=== PATIENT | male | born 1960 | race Hispanic/Latino ===

== ENCOUNTER 2019-02-28 13:27 | Outpatient (CLI) | payer OTHER ==
--- NOTE | 2019-03-01 08:32 | MRI ---
MR of the right shoulder without contrast INDICATION: Right shoulder pain. History of right shoulder; right shoulder injury while pulling 881 month ago TECHNIQUE: Sagittal T1, axial and coronal PD fat sat, sagittal and coronal T2 fat sat images were obt ained of the right shoulder. COMPARISON: None FINDINGS: Motion artifact limits image detail. Rotator cuff: There is a complete disruption of the supraspinatus tendon with retraction of the tendo n to centimeters from the foot bed. There is moderate tendinosis of the infraspinatus. Glenohumeral joint: Articular cartilage is intact. Glenoid labrum: Intact Biceps tendon and biceps anchor: Intact and located. Acromion clavicular joint: There is moderate to severe AC joint hypertrophy and marginal osteophytosi s. Joint hypertrophy causes mild encroachment on the subjacent supraspinatus musculotendinous junction. Subacromial subdeltoid space: There is fluid in the subacromial subdeltoid bursa. Axillary region: No lymphadenopathy. Surrounding shoulder musculature: Normal. No evidence of atrophy or strain. IMPRESSION: 1. Complete supraspinatus tendon tear. 2. Moderate infraspinatus tendinosis 3. Moderate to severe AC joint hypertrophy with mild encroachment on the subjacent supraspinatus musc ular tendinous junction.
== END 2019-02-28 13:28 | disposition home or self-care (01) ==
LOC: SCSMRI 13:27
PROVIDERS: ATTEND Family Medicine
DX: S46.811A Strain of other muscles, fascia and tendons at shoulder and upper arm level, right arm, initial encounter (principal); M77.9 Enthesopathy, unspecified

== ENCOUNTER 2021-08-11 20:22 | Observation (INO) | payer BC ==
[2021-08-11 21:34] VITALS: BMI 33.0
[2021-08-11] MEDS ORDERED: Nitroglycerin 0.4 MG TAB (25 Tab Bottle) SL PRN (22:52)
[2021-08-11 23:34] LABS: Troponin I Less than 0.010 ng/mL (< 0.028)
[2021-08-12] MEDS ORDERED: HumaLOG 300 UNITS/3 ML VIAL SC PRN ×2 (00:04)
[2021-08-12] MEDS ORDERED: Dextrose 50% Abboject 50 ML SYRINGE SLOW IVP PRN (00:04)
[2021-08-12] MEDS ORDERED: Acetaminophen 325 MG TAB PO PRN (00:04)
[2021-08-12] MEDS ORDERED: Dextrose 5% in Water 1,000 ML IV PRN (00:04)
[2021-08-12] MEDS ORDERED: Bisacodyl 5 MG TAB PO PRN (00:04)
[2021-08-12] MEDS ORDERED: Ondansetron PF 4 MG/2 ML Vial IVP PRN (00:04)
[2021-08-12] MEDS ORDERED: Senokot S 8.6-50 MG TAB PO PRN (00:04)
[2021-08-12] MEDS ORDERED: Melatonin 3 MG TAB PO PRN (00:08)
[2021-08-12] MEDS ORDERED: Enoxaparin Sodium 40 MG/0.4 ML SYRINGE SC SCH ×2 (00:15→21:00)
[2021-08-12] MEDS ORDERED: hydrALAZINE 20 MG/ML VIAL SLOW IVP PRN (00:17)
[2021-08-12] MEDS ORDERED: Pantoprazole 40 MG VIAL IVP SCH ×2 (00:18→09:00)
[2021-08-12] MEDS: Sodium Chloride 0.9% 1,000 ML IV SCH ×2 (00:29→14:16)
[2021-08-12 02:40] LABS: Troponin I Less than 0.010 ng/mL (< 0.028)
[2021-08-12 04:59] LABS: #Eosinphils 0.2 thou/uL (0.0-0.7); #Lymphocytes 2.6 thou/uL (1.20-3.40); #Monocytes 0.6 thou/uL (0.11-0.59); #Neutrophils 4.5 thou/uL (1.40-6.50); %Basophils 0.3 % (0.0-1.0); %Eosinophils 2.7 % (0.0-10.0); %Lymphocytes 32.5 % (21.0-51.0); %Monocytes 7.1 % (0.0-10.0); %Neutrophils 57.4 % (42.0-75.0); Hemoglobin 14.8 g/dL (14.0-18.0); Mean Corpuscular Hemoglobin 33.4 pg (27.0-31.0); Mean Corpuscular Volume 92.8 fL (78.0-98.0); Mean Platelet Volume 7.9 fL (7.4-10.4); Platelet Count 192 thou/uL (130-400); RBC Distribution Width 12.8 % (11.5-14.5); Red Blood Cell (RBC) Count 4.44 mill/uL (4.70-6.10); White Blood Cell (WBC) Count 7.8 thou/uL (4.8-10.8)
[2021-08-12 05:11] LABS: Hemoglobin A1c 8.9 % (4.0-6.0)
[2021-08-12 05:29] LABS: ALT (SGPT) 14 U/L (8-55); AST (SGOT) 20 U/L (5-34); Albumin 3.8 g/dL (3.4-4.8); Alkaline Phosphatase 69 U/L (40-110); Anion Gap 17 mmol/L (10-20); BUN (Urea Nitrogen) 21 mg/dL (8.4-25.7); Bilirubin, Total 1.1 mg/dL (0.2-1.2); Calc. Creatinine Clearance 107 mL/min (70-130); Calcium 8.9 mg/dL (7.8-10.44); Carbon Dioxide 20 mmol/L (23-31); Chloride 103 mmol/L (98-107); Cholesterol 77 mg/dl (< 200 Desired); Globulin 2.8 g/dL (2.4-3.5); Glucose 156 mg/dL (80-115); HDL Cholesterol 26 mg/dL (>60 Neg Risk); LDL Cholesterol, Calculated 17 mg/dL; Potassium 3.8 mmol/L (3.5-5.1); Protein, Total 6.6 g/dL (5.8-8.1); Sodium 136 mmol/L (136-145); Triglycerides 168 mg/dL (Less than 150)
[2021-08-12] MEDS ORDERED: ADENOSINE 60 MG/20 ML VIAL ONE (08:53)
[2021-08-12] MEDS ORDERED: Aspirin Chewable 81 MG TAB PO SCH (09:00)
[2021-08-12 12:05] VITALS: BP 136/83; TEMP 97.9
[2021-08-12 12:19] LABS: SARS-CoV-2 PCR by NAA Not Detected (NotDetected)
== END 2021-08-12 14:39 | disposition home or self-care (01) ==
LOC: 2SW 21:11
PROVIDERS: ADMIT Family Medicine; ATTEND Family Medicine
DX: R07.89 Other chest pain (principal); R42 Dizziness and giddiness; I10 Essential (primary) hypertension; E11.9 Type 2 diabetes mellitus without complications; E78.5 Hyperlipidemia, unspecified; K21.9 Gastro-esophageal reflux disease without esophagitis; I08.3 Combined rheumatic disorders of mitral, aortic and tricuspid valves; Z79.84 Long term (current) use of oral hypoglycemic drugs; Z79.899 Other long term (current) drug therapy; Z20.822 Contact with and (suspected) exposure to COVID-19
CPT/HCPCS: 36415; 36416; 78452; 80053; 80061; 83036; 84484; 85025; 93017; 93306; 94760; 96372; 96374; A9500; C9113; G0378; J0153; J1650; J7050; U0003; U0005